=== PATIENT | female | born 1990 | race Caucasian/White ===

== ENCOUNTER 2024-06-08 09:01 | Emergency (ER) | payer BC, MEDICAID, OTHER ==
[2024-06-08] MEDS: Acetaminophen/Codeine 300-30 MG Tab PO ONE (09:33)
[2024-06-08 09:56] LABS: CORONAVIRUS COVID-19 NAA NEGATIVE (NEGATIVE); INFLUENZA A NAA NEGATIVE (NEGATIVE); INFLUENZA B NAA NEGATIVE (NEGATIVE); RESPIRATORY SYNCYTIAL VIR NAA NEGATIVE (NEGATIVE)
[2024-06-08] MEDS: Amoxicillin/Clavulanate K 875-125 MG Tab PO ONE (10:17)
[2024-06-08] MEDS: Albuterol/Ipratropium 3.0-0.5 MG/3 ML Neb Soln NEB ONE (10:26)
== END 2024-06-08 10:50 | disposition home or self-care (01) ==
LOC: MW.ED 09:01
DX: J45.909 Unspecified asthma, uncomplicated (principal); J06.9 Acute upper respiratory infection, unspecified; F17.200 Nicotine dependence, unspecified, uncomplicated; Z79.899 Other long term (current) drug therapy; Z91.048 Other nonmedicinal substance allergy status; Z75.8 Other problems related to medical facilities and other health care
CPT/HCPCS: 0241U; 71045; 94640; 99285; A9270; J7620-GY